=== PATIENT | female | born 1970 | race Caucasian/White ===

== ENCOUNTER 2018-02-13 10:40 | Emergency (ER) | payer MEDICARE, OTHER ==
[~2018-02-13] VITALS: Ht 170.2 cm; Wt 72.6 kg
--- NOTE | 2018-02-13 11:22 | RAD ---
CT HEAD WO CONTRAST Indication: HEADACHE WITH HIGH BLOOD PRESSURE
NO PREVIOUS Exposure: One or more of the following individualized dose reduction techniques were utilized for this examination: 1. Automated exposure control 2. Adjustment of the mA and/or kV according to patient size 3. Use of iterative reconstruction technique. Comparison: None are available. Contrast: None Posterior fossa is unremarkable No acute intracranial hemorrhage. No mass effect or midline shift. There is mild enlargement of the bifrontal extra-axial CSF space, slightly greater on the right. On the right this measures 8 mm wide. No evidence of acute extra-axial hemorrhage. The partially visualized sinuses are clear. No evidence of a depressed skull fracture. Partially seen orbits are unremarkable. IMPRESSION: 1. No acute intracranial hemorrhage. 2. Mildly enlarged bifrontal extra-axial CSF spaces, right greater the left. 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 Regional atrophy with greater involvement of the frontal lobes could also be considered. Electronically signed by: Capo Price MD (02/13/2018 11:19 AM) [facility]
--- NOTE | 2018-02-13 11:50 | PHYS DOC ---
Past History Past Medical History: Other Past Surgical History: Hysterectomy Alcohol Use: None Drug Use: None Adult General Chief Complaint Chief Complaint: HEADACHE HPI HPI Patient is a 47 year old F who presents with dull frontal head pain that has fluctuated in intensity over the past 2 days. She denies any exacerbating or alleviating factors. She denies any associated symptoms. She has had 3 similar headaches in her life. 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 She has chronic pain and anxiety. Her pain and anxiety medications were recently increased. Review of Systems Review of Systems Constitutional: Denies fever or chills [] Eyes: Denies change in visual acuity, redness, or eye pain [] HENT: Denies nasal congestion or sore throat [] Respiratory: Denies cough or shortness of breath [] Cardiovascular: No additional information not addressed in HPI [] GI: Denies abdominal pain, nausea, vomiting, bloody stools or diarrhea [] : Denies dysuria or hematuria [] Musculoskeletal: Denies back pain or joint pain [] Integument: Denies rash or skin lesions [] Neurologic: Denies focal weakness or sensory changes [] Endocrine: Denies polyuria or polydipsia [] All other systems were reviewed and found to be within normal limits, except as documented in this note. Family History Family History No pertinent family medical history was reported Current Medications Current Medications Current medications reviewed Allergies Allergies Allergies Coded Allergies Type Severity Reaction Last Updated Verified No Known Drug Allergies 04/06/16 No Physical Exam Physical Exam Constitutional: Well developed, well nourished, no acute distress, non-toxic appearance. [] HENT: Normocephalic, atraumatic, mild nasal congestion bilaterally Eyes: PERRLA, EOMI, conjunctiva normal, no discharge. [] Neck: Normal range of motion, no tenderness, supple, no stridor. [] Cardiovascular:Heart rate regular rhythm Lungs & Thorax: Bilateral breath sounds clear to auscultation [] Abdomen: Bowel sounds normal, soft, no tenderness, no masses, no pulsatile masses. [] Skin: Warm, dry, no erythema, no rash. [] Extremities: No tenderness, no cyanosis, no clubbing, ROM intact, no edema. [] Neurologic: Alert and oriented X 3, normal motor function, normal sensory function, no focal deficits noted. [] Psychologic: Affect normal, judgement normal, mood normal. [] Current Patient Data Vital Signs Vital Signs Date Time Temp Pulse Resp B/P (MAP) Pulse Ox O2 Delivery O2 Flow Rate FiO2 02/13/18 10:59 98.4 117 20 97 Room Air EKG EKG [] Radiology/Procedures Radiology/Procedures Head CT without contrast Impressions: Posterior fossa is unremarkable No acute intracranial hemorrhage. No mass effect or midline shift. There is mild enlargement of the bifrontal extra-axial CSF space, slightly greater on the right. On the right this measures 8 mm wide. No evidence of acute extra-axial hemorrhage. The partially visualized sinuses are clear. No evidence of a depressed skull fracture. Partially seen orbits are unremarkable. IMPRESSION: 1. No acute intracranial hemorrhage. 2. Mildly enlarged bifrontal extra-axial CSF spaces, right greater the left. 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 Regional atrophy with greater involvement of the frontal lobes could also be considered. Course & Med Decision Making Course & Med Decision Making Pertinent Labs and Imaging studies reviewed. (See chart for details) [] Dragon Disclaimer Dragon Disclaimer This electronic medical record was generated, in whole or in part, using a voice recognition dictation system. Departure Departure: Impression: Primary Impression: Headache Disposition: 01 HOME, SELF-CARE Condition: STABLE Referrals: SWATHI CRABTREE MD (PCP) Patient Instructions: General Headache Without Cause Additional Instructions: Shaw was seen in the emergency department for headache. No emergency medical condition was found on history or physical exam. She did have a normal CT scan of her head. She is encouraged to return the emergency room if she develops new or worsening symptoms. She was also advised follow-up with primary care doctor in the next 3-5 days for further management. Problem Qualifiers Primary Impression: Headache Headache type: unspecified Headache chronicity pattern: unspecified pattern Intractability: not intractable Qualified Codes: R51 - Headache SWATHI CORREA MD Feb 13, 2018 11:50
[2018-02-13 12:10] VITALS: BP 153/106
== END 2018-02-13 12:05 | disposition home or self-care (01) ==
LOC: ER 10:40
DX: R51 Headache (principal); G89.29 Other chronic pain; F41.9 Anxiety disorder, unspecified
CPT/HCPCS: 70450; 99284-25

== ENCOUNTER → 2018-02-18 | Outpatient (CLI) | payer MEDICARE, OTHER ==
[2018-02-13 12:10] VITALS: BP 153/106
--- NOTE | 2018-02-18 14:26 | RAD ---
Renal ultrasound, 02/18/2018: History: Hypertension The right kidney measures 9.3 cm in length while the left kidney measures 10.9 cm. A cystic area centrally in the right kidney appears to represent a mildly prominent renal pelvis. The calyces are not dilated. A parapelvic renal cyst could also give this appearance. The left renal collecting system is unremarkable. There is no evidence of a left renal mass. Limited views of the bladder show no abnormality. IMPRESSION: 1. Mildly prominent right renal pelvis. 2. The kidneys are otherwise unremarkable.
== END | disposition home or self-care (01) ==
LOC: US 13:29
PROVIDERS: ATTEND Family Medicine
DX: I16.0 Hypertensive urgency (principal)
CPT/HCPCS: 76770

== ENCOUNTER → 2018-09-13 | Outpatient (CLI) | payer MEDICARE, OTHER ==
--- NOTE | 2018-09-13 14:10 | RAD ---
CT brain without contrast. HISTORY: Headaches CT scan of brain was done without contrast. Comparison is made with a study from February. There is diffuse atrophy. There are low-density bifrontal extra-axial prominent spaces from atrophy or from chronic subdurals without change from the old study. Visualized sinuses are clear. Ventricles are normal in size. There is no shift of the midline. There has been no change from the prior study. IMPRESSION: 1. Prominent extra-axial spaces possible chronic bifrontal subdural hygromas without change. 2. No acute intracranial hemorrhage or acute CVA noted. RS Compliance Statement: One or more of the following individualized dose reduction techniques were utilized for this examination: 1. Automated exposure control 2. Adjustment of the mA and/or kV according to patient size 3. Use of iterative reconstruction technique Electronically signed by: Adam Jacques MD (09/13/2018 2:07 PM) [id number]
== END | disposition home or self-care (01) ==
LOC: CT 13:13
PROVIDERS: ATTEND Family Medicine
DX: R51 Headache (principal)
CPT/HCPCS: 70450

== ENCOUNTER → 2019-03-10 | Outpatient (CLI) | payer MEDICARE, OTHER ==
--- NOTE | 2019-03-10 12:43 | RAD ---
Examination: CT chest without contrast HISTORY: History of weight loss, abnormal chest x-ray COMPARISON: None available Technique: Axial CT images of the chest were performed without contrast. Coronal and sagittal reformats are performed Exposure: One or more of the following individualized dose reduction techniques were utilized for this examination: 1. Automated exposure control 2. Adjustment of the mA and/or kV according to patient size 3. Use of iterative reconstruction technique FINDINGS: The visualized thyroid gland grossly appears unremarkable and central airways are patent. The heart size grossly appears unremarkable. The caliber of the aorta grossly appears unremarkable. No evidence for significant mediastinal lymphadenopathy is identified. There is a 7.5 mm solid nodule identified in the right middle lobe of the lung. There is a 4 mm nodule identified in the right lower lobe of the lung. Faint groundglass opacities identified in the lateral lungs. No evidence of pleural effusion or pneumothorax. The visualized noncontrasted liver, spleen, adrenals grossly appears unremarkable. Minimal degenerative changes thoracic spine. IMPRESSION: 1. 7.5 mm solid nodule right middle lobe of the lung. There is a 4 mm nodule identified in the right lower lobe of the lung. Recommend follow-up per Fleischner Society guidelines with a follow-up CT in 3-6 months. 2. Faint scattered groundglass opacities identified in the bilateral lungs likely minimal infiltrates. Electronically signed by: Jericho Cedeño MD (03/10/2019 12:41 PM) [id number]
== END | disposition home or self-care (01) ==
LOC: CT 10:19
PROVIDERS: ATTEND Nurse Practitioner Family
DX: R91.8 Other nonspecific abnormal finding of lung field (principal); M47.814 Spondylosis without myelopathy or radiculopathy, thoracic region; R63.4 Abnormal weight loss; F17.210 Nicotine dependence, cigarettes, uncomplicated
CPT/HCPCS: 71250

== ENCOUNTER → 2019-06-17 | Outpatient (CLI) | payer MEDICARE, OTHER ==
--- NOTE | 2019-06-17 17:08 | RAD ---
Examination: CT CHEST WO CONTRAST History: Pulmonary nodule Comparison/Correlation: 03/10/2019 CT chest without contrast Findings: Axial images of chest were obtained without contrast. Sagittal and coronal reformatted images were provided. The tracheobronchial tree is unremarkable. No pleural or pericardial effusion. There is a 0.6 cm diameter nodule involving the right middle lobe along the undersurface of the minor fissure best seen on axial image 182 of series 2 and on sagittal image 117 of series 4. This has remained unchanged. Previously described right lower lobe 0.4 cm diameter nodule is not definitely delineated current exam. There is a 0.6 cm diameter pleural-based nodule at the mid thoracic level on axial image 184 and this is new since the prior exam. It corresponds to site of a groundglass density lesion. Groundglass opacity at the right upper lung field laterally is somewhat less evident in the interval. Groundglass opacity posterior to the major fissure at the hilar level is unchanged. No enlarged thoracic lymph nodes. No pleural or pericardial effusion. Partially visualized upper abdomen is unremarkable. Bony structures are unremarkable. Impression: Nodule at the right posterior mid thoracic level adjacent to the pleura is evident in the interval at the site of previously present groundglass opacity. Interval follow-up in 6 months in order to assess stability is recommended by CT. Subtle groundglass infiltrates are unchanged. Nodule along the undersurface of the minor fissure within the right middle lobe is unchanged and has appearance of a perifissural lymph node. No further follow-up for this lesion is needed. PQRS Compliance Statement: One or more of the following individualized dose reduction techniques were utilized for this examination: 1. Automated exposure control 2. Adjustment of the mA and/or kV according to patient size 3. Use of iterative reconstruction technique Electronically signed by: Kaleb Natarajan MD (06/17/2019 5:05 PM) [facility]
== END | disposition home or self-care (01) ==
LOC: CT 09:06
PROVIDERS: ATTEND Internal Medicine Pulmonary Disease
DX: R91.8 Other nonspecific abnormal finding of lung field (principal)
CPT/HCPCS: 71250